=== PATIENT | male | born 2005 | race African-American/Black ===

== ENCOUNTER 2025-01-10 17:11 | Observation (INO) ==
[2025-01-10 17:48] LABS: Basophils # (auto) 0.03 K/uL (0.00-0.20); Basophils % (auto) 0.4 %; Eosinophils # (auto) 0.09 K/uL (0.00-0.50); Eosinophils % (auto) 1.1 %; Hematocrit (blood only) 43.6 % (42.0-52.0); Hemoglobin 15.3 g/dl (14.0-18.0); Immature Granulocytes # (auto) 0.03 K/uL (0.01-0.20); Immature Granulocytes % (auto) 0.4 %; Lymphocytes # (auto) 1.51 K/uL (1.20-3.40); Lymphocytes % (auto) 17.9 %; Mean Corpuscular Hemoglobin 30.9 pg (25.0-34.0); Mean Corpuscular Hgb Conc 35.1 g/dL (32.0-36.0); Mean Corpuscular Volume 88.1 fL (80.0-100.0); Mean Platelet Volume 10.9 fL (9.4-12.4); Monocytes # (auto) 0.48 K/uL (0.11-0.59); Monocytes % (auto) 5.7 %; Neutrophils # (auto) 6.31 K/uL (1.40-6.50); Neutrophils % (auto) 74.5 %; Platelet Count 193 K/uL (130-400); RDW Coefficient of Variation 12.1 % (11.5-14.5); RDW Standard Deviation 38.9 fL (36.4-46.3); Red Blood Count 4.95 M/uL (4.70-6.10); White Blood Count 8.45 K/ul (4.8-10.8)
[2025-01-10 17:50] LABS: Appearance Urine Clear (Clear); Bacteria Urine Automated None Seen (None Seen); Bilirubin Urine Negative (Negative); Blood Urine 1+ (Negative); Cast Urine Automated 0-2 /lpf (0-2); Color Urine Yellow; Epithelial Cell Urine Auto 0-2 /hpf (0-2); Glucose Urine UA Negative (Negative); Ketones Urine Negative (Negative); Leukocyte Esterase Urine Negative (Negative); Nitrite Urine Negative (Negative); Protein Urine Negative (Negative); Specific Gravity Urine 1.023 (1.000-1.030); Urobilinogen Urine Negative (Negative); WBC Urine Automated 0-5 /hpf (0-5)
[2025-01-10 18:04] LABS: Albumin Globulin Ratio 1.6 (0.9-2); Albumin Level 5.1 gm/dl (3.4-5.0); Bilirubin,Total 1.1 mg/dl (0.2-1.0); Calcium 9.9 mg/dl (8.6-10.3); Creatinine Clr Calc Pharmacy 115.9 ml/min; Globulin 3.1 gm/dl (2.5-4.0); Potassium 3.9 mmol/L (3.5-5.1); Total Protein 8.2 gm/dl (6.0-8.3)
[2025-01-10] MEDS: OPTIRAY 320 100ml IV ONE (19:19)
--- NOTE | 2025-01-10 19:34 | CT Scan Report ---
Clinical History: Rule out appendicitis Technique: Axial computed tomography images were obtained of the abdomen and pelvis after the administration of intravenous contrast. No prior CT is available for comparison. Findings: The liver is overall of normal size, attenuation, and contour with no sign of cirrhosis or significant fatty infiltration. No liver mass lesion is seen. The portal vein is patent. The gallbladder appears unremarkable. No bile duct dilatation is noted. The spleen is of normal size. No focal splenic lesion is evident. The pancreas appears normal with no sign of acute or chronic pancreatitis and no mass lesion noted. The pancreatic duct is of normal caliber. The adrenal glands appear unremarkable. No definite renal or proximal ureteral calculi are seen on this contrast-enhanced study. There is no hydronephrosis or perinephric stranding. No renal mass lesion is identified. The aorta is of normal caliber. No abdominal adenopathy is seen. The stomach appears normal. There is no sign of small bowel obstruction. The colon appears unremarkable. The appendix is mildly dilated and thick-walled with mild adjacent soft tissue stranding. No free intraperitoneal fluid or air is identified. No distal ureteral or bladder calculi are seen. No bladder mass lesion is evident. The iliac arteries are of normal caliber. No pelvic adenopathy is noted. The lungs bases appear clear. No fracture is identified. No focal osseous lesion is seen Impression: Acute appendicitis. There is no sign of perforation or abscess formation Electronically signed by Hong Salazar 01-10-2025 7:33 PM
[2025-01-10] MEDS: PIPERACILLIN/TAZOBACTAM 4.5 GM/100 ML BAG IV ONE (19:54)
[2025-01-10] MEDS ORDERED: ACETAMINOPHEN 1,000 MG/100 ML VIAL IV PRN (20:12)
[2025-01-10] MEDS ORDERED: ONDANSETRON INJ 2 MG/ML 2 ML VIAL IV PRN (20:12)
[2025-01-10] MEDS ORDERED: MoRPHine SULFATE 4 MG/ML 1 ML CARP\\VIAL IV PRN (20:12)
--- NOTE | 2025-01-10 20:12 | History & Physical Report ---
Date of Service January 10, 2025 Assessment & Plan (1) Appendicitis: Plan: Due to the patient's clinical presentation as well as findings on CT scan he will be admitted to the surgical service proceeding as follows: Analgesics we provided Antiemetics to be provided We will initiate antibioticsthe emergency department is already initiated Zosyn which we will continue Will hydrate him with IV fluids Will implement n.p.o. status We will tentatively plan on having the patient undergo an appendectomy with Dr. Travis Aguiar of [facility] physician of general surgery on 01/11/2025 At the present time the patient is nontoxic-appearing. He is normotensive and was not tachycardic at the time of my exam. He is afebrile. He does not have leukocytosis. As the patient ate a full meal at approximately 2:00 PM and he does not appear septic/toxic we will hold on do his surgery until the morning of 01/11/2025 We will use SCDs for DVT prevention, no chemical means due to planned surgery Additional recommendations with forthcoming based on operative findings and his postoperative recovery thereafter Will make the patient a level 1 full code History of Present Illness Chief Complaint: Abdominal pain Primary Care Provider: NO PCP This is a 19-year-old male who presented to the emergency department secondary to abdominal pain. Patient notes that the pain began approximately 2 days ago and was in the periumbilical location and has since shifted to the right lower quadrant. He denies any fevers, shakes, or chills. He denies any nausea or vomiting. He does note that the pain became more severe over the past 12 hours and therefore presented to [facility] who ultimately referred the patient to the emergency department for further evaluation. Patient notes that he has had no prior abdominal surgeries. He does note that his most recent oral intake was at approximate 2:00 PM at which time he ate a salad with croutons and Caesar dressing, some watermelon, some cannula, as well as some cottage cheese. Since arrival to the hospital the patient has had labs and imaging which I independently reviewed. CT scan of the abdomen pelvis showed the patient had signs of acute appendicitis is in the appendix but people have was noted to be mildly dilated and thick-walled with some mild adjacent soft tissue stranding. There is no free intraperitoneal fluid or free intraperitoneal air. There is no evidence of appendiceal perforation. CBC revealed white blood cell count, hemoglobin, hematocrit, and platelet count were normal. Chemistry profile showed sodium and potassium as well as the BUN and creatinine were normal. There is no elevation of LFTs or lipase Other than a slight elevation of the total bilirubin of 1.1. Urinalysis was not indicative of infection. At the time of my interview patient is resting comfortably in bed he was no distress. Concerning past medical history he denies any medical problems Concerning past surgical history he has never had surgery Concerning social history he does not smoke or vape Concerning family history his father is treated for hypertension. Allergies Allergy/AdvReac Type Severity Reaction Status Date / Time No Known Allergies Allergy Unverified 01/10/25 19:56 Home Medications Medication Instructions Recorded Confirmed Type No Known Home Medications 01/10/25 01/10/25 History Past Med/Surg History Problem List (Updated 01/10/25 @ 20:09 by Gurjit Shepherd PA-C) Appendicitis Social History Smoking Status: Never smoker Preferred Language: Andorran Feels Safe at Home: Yes Review of Systems Review of Systems: All systems reviewed & are unremarkable except as noted in HPI & below Physical Exam Constitutional: WD/WN, vitals as above Eyes: no conjunctival abnormality ENMT: Ears: no hearing impairment and no external ear abnormality Mouth: no oropharynx abnormality Neck: trachea midline Respiratory: normal respiratory effort; no respiratory distress and no labored breathing Cardiovascular: Rate/Rhythm: regular rate and regular rhythm Gastrointestinal (Abdomen): Abdomen is soft and nondistended. There is no rebound tenderness or guarding or rigidity. Patient did have pain with palpation in the right lower quadrant over McBurney's point Musculoskeletal: No gross orthopedic abnormalities Skin: no rashes Neurologic: moves all extremities Psychiatric: A+Ox3, euthymic affect Results & Data Results & Data Vital Signs (Past 12 Hours) Vital Signs Temp Pulse Pulse Resp BP BP Pulse Ox 01/10/25 19:55 94 H 19 118/80 98 01/10/25 19:05 84 19 123/72 100 01/10/25 18:43 79 20 143/91 H 99 01/10/25 17:22 36.5 C 89 19 129/74 98 O2 Del Method 01/10/25 19:55 Room Air 01/10/25 19:05 Room Air 01/10/25 18:43 Room Air 01/10/25 17:22 Room Air PG Care Time/CCT Total # of Minutes Spent Total Time Spent with Patient: Total time spent is greater than 50% in coordination of care (as documented) at patient's floor/unit and/or counseling patient: Coding Level of Care Code 48251 INT INP/OBS CARE 3/75MIN Diagnoses Appendicitis K37
[2025-01-10 21:11] LABS: Partial Thromboplastin Ratio 1.1; Partial Thromboplastin Time 29 Seconds (21-31); Prothrombin Time 11.2 Seconds (9.0-12.0)
[2025-01-10] MEDS: SODIUM CHLORIDE 0.9% 1,000 ML IV SCH (21:19)
--- NOTE | 2025-01-10 21:42 | Emergency Department Note ---
ED Provider Note History of Present Illness Chief Complaint: Abdominal Pain Stated Complaint: LOWER QUAD ABD PAIN Time Seen by Provider: 01/10/25 19:37 Source: patient Mode of arrival: ambulatory Limitations: no limitations This patient is a 19-year-old male who presents to the emergency department for evaluation of right lower abdominal pain. Patient states that 2 days ago, he developed some mild pain around his bellybutton. Yesterday he noticed the pain was more on the right side and was persistent throughout the day. He has had continued pain today. He was seen by [facility] today and referred here for appendicitis workup. He denies any nausea/vomiting or fevers. No urinary symptoms or changes in bowel movements. Pain is worse when he is standing straight up or moving. Home Medications Medication Instructions Recorded Confirmed Type No Known Home Medications 01/10/25 01/10/25 History Allergies Allergy/AdvReac Type Severity Reaction Status Date / Time No Known Allergies Allergy Unverified 01/10/25 19:56 Past Med/Surg History Problem List (Updated 01/10/25 @ 21:42 by Lauren Mcgowan PA-C) Appendicitis (Acute) Social History Smoking Status: Never smoker Preferred Language: Kiswahili Feels Safe at Home: Yes Physical Exam Vital Signs Vital Signs - 24 hr 01/10/25 17:22 01/10/25 18:43 01/10/25 19:05 Temperature 36.5 C Temperature Source Temporal Artery Scan Pulse Rate 89 Pulse Rate [Right] 79 84 Respiratory Rate 19 20 19 Respiratory Effort / Characteristics Non-Labored Spontaneous Respiratory Depth Normal Blood Pressure 129/74 Blood Pressure [Left Arm] 143/91 H 123/72 Blood Pressure Mean 92 Blood Pressure Mean [Left Arm] 108 89 Pulse Oximetry 98 99 100 Oxygen Delivery Method Room Air Room Air Room Air Sepsis Recent Fever Within 48 Hours No Sepsis New/Unexplained Change in Mental Status N/A Sepsis Action Taken by Nursing No Action Required 01/10/25 19:55 Temperature Temperature Source Pulse Rate Pulse Rate [Right] 94 H Respiratory Rate 19 Respiratory Effort / Characteristics Respiratory Depth Blood Pressure Blood Pressure [Left Arm] 118/80 Blood Pressure Mean Blood Pressure Mean [Left Arm] 92 Pulse Oximetry 98 Oxygen Delivery Method Room Air Sepsis Recent Fever Within 48 Hours Sepsis New/Unexplained Change in Mental Status Sepsis Action Taken by Nursing VITALS: Vitals are noted on the nurse's note and reviewed by myself. GENERAL: This is a 19-year-old male, in no acute distress, well-developed well- nourished. SKIN: The skin was without rashes. HEART: Regular rate and rhythm without murmurs gallops or rubs. LUNGS: Clear to auscultation bilaterally without wheezes, rales or rhonchi. ABDOMEN: Positive bowel sounds x 4. Soft, moderate tenderness in the right lower quadrant. No guarding or rebound tenderness. NEURO: Patient was alert and oriented to person place and time. Course Administered Medications Sodium Chloride (Nss) 1,000 mls @ 100 mls/hr IV .Q10H NURIS Stop: 01/11/25 20:14 Last Admin: 01/10/25 21:19 Dose: 100 mls/hr Documented By: ASW Discontinued Medications Piperacillin Sod/Tazobactam Sod (Zosyn) 4.5 gm in 100 mls @ 200 mls/hr IV NOW ONE Stop: 01/10/25 20:14 Last Infusion: 01/10/25 20:21 Dose: Infused Documented By: Admin: 01/10/25 19:54 Dose: 200 mls/hr Documented By: ASW Ioversol (Optiray 320 100ml) 93 ml IV ONCE ONE Stop: 01/10/25 19:20 Last Admin: 01/10/25 19:19 Dose: 93 ml Documented By: PLW Medical Decision Making Differential Diagnosis Appendicitis, testicular torsion, infections, diverticulitis, UTI, obstruction, mesenteric ischemia, aortic pathology, inflammatory bowel disease, renal colic, PUD, pancreatitis, biliary pathology, hernia, volvulus, constipation, as well as other pathologies. Laboratory Data Attestation: I reviewed the patient's lab results. 01/10/25 17:27 01/10/25 17:27 Lab Results 01/10/25 01/10/25 Range/Units 17:27 17:29 WBC 8.45 (4.8-10.8) K/ul RBC 4.95 (4.70-6.10) M/uL Hgb 15.3 (14.0-18.0) g/dl Hct 43.6 (42.0-52.0) % MCV 88.1 (80.0-100.0) fL MCH 30.9 (25.0-34.0) pg MCHC 35.1 (32.0-36.0) g/dL RDW Std Deviation 38.9 (36.4-46.3) fL RDW Coeff of Serge 12.1 (11.5-14.5) % Plt Count 193 (130-400) K/uL MPV 10.9 (9.4-12.4) fL Immature Gran % (Auto) 0.4 % Neut % (Auto) 74.5 % Lymph % (Auto) 17.9 % [place] % (Auto) 5.7 % Eos % (Auto) 1.1 % Baso % (Auto) 0.4 % Neut # (Auto) 6.31 (1.40-6.50) K/uL Lymph # (Auto) 1.51 (1.20-3.40) K/uL [place] # (Auto) 0.48 (0.11-0.59) K/uL Eos # (Auto) 0.09 (0.00-0.50) K/uL Baso # (Auto) 0.03 (0.00-0.20) K/uL Immature Gran # (Auto) 0.03 (0.01-0.20) K/uL PT 11.2 (9.0-12.0) Seconds INR 1.0 (0.9-1.1) APTT 29 (21-31) Seconds PTT Ratio 1.1 Sodium 138 (136-145) mmol/L Potassium 3.9 (3.5-5.1) mmol/L Chloride 103 (98-107) mmol/L Carbon Dioxide 27 (21-32) mmol/L Anion Gap 8 (3-11) BUN 20 (6-23) mg/dl Creatinine 1.05 (0.6-1.4) mg/dl Est Cr Clr Drug Dosing 115.9 ml/min eGFR 104.22 BUN/Creatinine Ratio 19.0 (10-20) Glucose 89 (70-99(Fasting)) mg/dl Calcium 9.9 (8.6-10.3) mg/dl Total Bilirubin 1.1 H (0.2-1.0) mg/dl AST 23 (13-39) U/L ALT 35 (7-52) U/L Alkaline Phosphatase 44 (34-104) U/L Total Protein 8.2 (6.0-8.3) gm/dl Albumin 5.1 H (3.4-5.0) gm/dl Globulin 3.1 (2.5-4.0) gm/dl Albumin/Globulin Ratio 1.6 (0.9-2) Lipase 19 (11-82) U/L Urine Color Yellow Urine Appearance Clear (Clear) Urine pH 6.0 (4.5-7.5) Ur Specific [place] 1.023 (1.000-1.030) Urine Protein Negative (Negative) Urine Glucose (UA) Negative (Negative) Urine Ketones Negative (Negative) Urine Blood 1+ H (Negative) Urine Nitrite Negative (Negative) Urine Bilirubin Negative (Negative) Urine Urobilinogen Negative (Negative) Ur Leukocyte Esterase Negative (Negative) Urine WBC (Auto) 0-5 (0-5) /hpf Urine RBC (Auto) 3-5 H (0-2) /hpf U Hyaline Cast (Auto) 0-2 (0-2) /lpf U Epithel Cells (Auto) 0-2 (0-2) /hpf Urine Bacteria (Auto) None Seen (None Seen) Imaging Data Attestation: I personally reviewed and interpreted this imaging study as follows: Radiologist's Impression: Abdomen/Pelvis CT 01/10/25 18:39 Clinical History: Rule out appendicitis Technique: Axial computed tomography images were obtained of the abdomen and pelvis after the administration of intravenous contrast. No prior CT is available for comparison. Findings: The liver is overall of normal size, attenuation, and contour with no sign of cirrhosis or significant fatty infiltration. No liver mass lesion is seen. The portal vein is patent. The gallbladder appears unremarkable. No bile duct dilatation is noted. The spleen is of normal size. No focal splenic lesion is evident. The pancreas appears normal with no sign of acute or chronic pancreatitis and no mass lesion noted. The pancreatic duct is of normal caliber. The adrenal glands appear unremarkable. No definite renal or proximal ureteral calculi are seen on this contrast-enhanced study. There is no hydronephrosis or perinephric stranding. No renal mass lesion is identified. The aorta is of normal caliber. No abdominal adenopathy is seen. The stomach appears normal. There is no sign of small bowel obstruction. The colon appears unremarkable. The appendix is mildly dilated and thick-walled with mild adjacent soft tissue stranding. No free intraperitoneal fluid or air is identified. No distal ureteral or bladder calculi are seen. No bladder mass lesion is evident. The iliac arteries are of normal caliber. No pelvic adenopathy is noted. The lungs bases appear clear. No fracture is identified. No focal osseous lesion is seen Impression: Acute appendicitis. There is no sign of perforation or abscess formation Electronically signed by Hong Salazar 01-10-2025 7:33 PM MDM Narrative This patient is a 19-year-old male who presents to the emergency department for evaluation of right lower quadrant abdominal pain. Labs show no leukocytosis or other acute abnormalities. CT does show evidence of acute appendicitis without abscess or perforation. General surgery was consulted. Patient's last meal approximately 6 hours ago. He will be admitted by surgery and taken to the OR in the morning. He was given a dose of Zosyn in the emergency department. He declined any analgesics. Impression Appendicitis Discharge Plan Visit Data Chief Complaint: Abdominal Pain Stated Complaint: LOWER QUAD ABD PAIN ED Provider: Tracie Valdes ED Midlevel Provider: Lauren Mcgowan Discharge Problem: Appendicitis Forms Stand Alone Forms: [employer] Prescriptions Prescriptions: No Action No Known Home Medications Referrals Referrals: [place] [Primary Care Provider] -
[2025-01-10] MEDS: PIPERACILLIN/TAZOBACTAM 4.5 GM/100 ML BAG IV SCH (23:41)
[2025-01-11] MEDS ORDERED: DEXAMETHASONE SOD INJ 4 MG/ML VIAL ONE (08:09)
[2025-01-11] MEDS ORDERED: MIDAZOLAM HCL 1 MG/ML 2ML VIAL ONE (08:09)
[2025-01-11] MEDS ORDERED: ROCURONIUM BROMIDE 10 MG/ML 5 ML VIAL IV ONE (08:09)
[2025-01-11] MEDS ORDERED: ONDANSETRON INJ 2 MG/ML 2 ML VIAL ONE (08:09)
[2025-01-11] MEDS ORDERED: LIDOCAINE 2% 2 ML VIAL/AMP(20MG/ML) INFIL ONE (08:09)
[2025-01-11] MEDS ORDERED: fentaNYL citrate PF 100 MCG/2 ML VIAL ONE ×2 (08:09→12:01)
[2025-01-11] MEDS ORDERED: PROPOFOL IV EMULSION 10 MG/ML 20 ML VIAL IV ONE (08:09)
--- NOTE | 2025-01-11 09:20 | Surgery Progress Note ---
Date of Service January 11, 2025 Assessment & Plan (1) Appendicitis: Plan: His CT and results were personally viewed and interpreted by myself He has periappendiceal inflammation without appendix consistent with appendicitis Will plan on a laparoscopic appendectomy, possible open Consent was obtained, risks discussed including bleeding, infection, abscess Admission and Anticipated Discharge Date Admission Date: January 10, 2025 Subjective Patient seen and examined. Minimal right lower quadrant pain. Afebrile. No nausea or vomiting. Review of Systems Constitutional: no fever and no chills Respiratory: no cough and no dyspnea Cardiovascular: no chest pain and no dyspnea on exertion Gastrointestinal: + abdominal pain; no nausea and no vomit ing Genitourinary: no dysuria or no urinary incontinence Psychiatric: no behavioral changes and no depression Hematologic / Lymphatic: no easy bleeding and no easy bruising Physical Exam Constitutional: WD/WN, vitals as above Eyes: PERRL, conjunctivae normal, anicteric sclerae Respiratory: normal respiratory effort, lungs clear to auscultation Cardiovascular: RRR, no murmur, no edema Gastrointestinal (Abdomen): Inspection/Auscultation: abdomen normal to inspection; abdomen not distended Percussion/Palpation: + abdomen tender (Right lower quadrant) and abdomen soft; no guarding and no hernia Skin: no rashes, warm and dry Psychiatric: A+Ox3, euthymic affect Results & Data Vital Signs (Past 12 Hours) Vital Signs Temp Pulse Resp BP Pulse Ox O2 Del Method 01/11/25 09:13 36.8 C 76 15 109/65 98 Room Air 01/11/25 07:21 36.9 C 81 18 122/73 98 Room Air 01/11/25 02:00 36.9 C 68 17 127/75 99 Room Air 01/10/25 22:30 Room Air 01/10/25 22:13 36.5 C 79 16 112/55 L 98 Room Air 01/10/25 22:10 36.5 C 79 16 112/55 L 98 Room Air PG Care Time/CCT Total # of Minutes Spent Total Time Spent with Patient: Total time spent is greater than 50% in coordination of care (as documented) at patient's floor/unit and/or counseling patient: Coding Level of Care Code 61454 SUB INP/OBS CARE 12/23MIN Diagnoses Appendicitis K37 Appendicitis type: acute appendicitis (1) Appendicitis Appendicitis type: acute appendicitis
--- NOTE | 2025-01-11 09:20 | Anesthesiology Consultation ---
Date of Service January 11, 2025 Assessment & Plan Chart Review Chart Review: Acceptable Risk for Surgery and Patient NOT seen in Pre Admission Testing Consults Requested none History Surgery Operation Date: 01/11/25 07:00 Proposed Procedures p Laparoscopic Appendectomy - Travis Aguiar DO Height/Weight Height: 5 ft 10 in Weight: 85.8 kg Allergies Allergy/AdvReac Type Severity Reaction Status Date / Time No Known Allergies Allergy Unverified 01/10/25 19:56 Medications Home Medications Medication Instructions Recorded Confirmed Last Taken No Known Home Medications 01/10/25 01/10/25 Unknown Active Medications Generic Name Dose Route Start Last Admin Trade Name Freq PRN Reason Stop Dose Admin Sodium Chloride 1,000 mls @ 100 mls/hr 01/10/25 20:15 01/11/25 07:53 Nss IV 01/11/25 20:14 100 mls/hr .Q10H NURIS Administration Piperacillin Sod/Tazobactam Sod 4.5 gm in 100 mls @ 25 mls/hr 01/11/25 00:00 01/11/25 07:50 Zosyn IV 01/21/25 00:00 25 mls/hr Q8H NURIS Administration Protocol NPO Date Last Intake of Fluids: 01/10/25 Time Last Intake of Fluids: 13:45 Date Last Intake of Solids: 01/10/25 Time Last Intake of Solids: 13:45 Social History Smoking Status: Never smoker Do You Dip or Chew Tobacco: No Hx Alcohol Use: No Hx Substance Use: No Physical Exam Vital Signs Last Vital Signs Temp 98.2 F 01/11/25 09:13 Pulse 76 01/11/25 09:13 Resp 15 01/11/25 09:13 BP 109/65 01/11/25 09:13 Pulse Ox 98 01/11/25 09:13 O2 Del Method Room Air 01/11/25 09:13 Testing Laboratory Results 01/10/25 17:27 01/10/25 17:27 PT 11.2 Seconds (9.0-12.0) 01/10/25 17: INR 1.0 (0.9-1.1) 01/10/25 17: APTT 29 Seconds (21-31) 01/10/25 17:27 Urine Color Yellow 01/10/25 17: Urine Appearance Clear (Clear) 01/10/25 17: Urine pH 6.0 (4.5-7.5) 01/10/25 17: Ur Specific [place] 1.023 (1.000-1.030) 01/10/25 17: Urine Protein Negative (Negative) 01/10/25 17: Urine Glucose (UA) Negative (Negative) 01/10/25: Urine Ketones Negative (Negative) 01/10/25: Urine Nitrite Negative (Negative) 01/10/25: Ur Leukocyte Esterase Negative (Negative) 01/10/25 17: Urine WBC (Auto) 0-5 /hpf (0-5) 01/10/25: Urine RBC (Auto) 3-5 /hpf (0-2) H 01/10/25: U Hyaline Cast (Auto) 0-2 /lpf (0-2) 01/10/25 17: U Epithel Cells (Auto) 0-2 /hpf (0-2) 01/10/25 17: Urine Bacteria (Auto) None Seen (None Seen) 01/10/25:
[2025-01-11] MEDS ORDERED: fentaNYL citrate PF 100 MCG/2 ML VIAL IV PRN (09:30)
[2025-01-11] MEDS ORDERED: ePHEDrine sulfate 50 MG/ML AMP IV PRN (09:30)
[2025-01-11] MEDS ORDERED: ONDANSETRON INJ 2 MG/ML 2 ML VIAL IV PRN (09:30)
[2025-01-11] MEDS ORDERED: ATROPINE SULFATE 0.1 MG/ML 10ML SYR IV PRN (09:30)
[2025-01-11] MEDS: BUPIVACAINE/EPINEPHRINE 0.25% 1:200,000 30 ML VIAL ONE (12:16)
[2025-01-11] MEDS ORDERED: SUGAMMADEX SODIUM 200 MG/2 ML VIAL IV ONE (12:17)
[2025-01-11] MEDS ORDERED: KETOROLAC 30 MG/ML VIAL ONE (12:18)
--- NOTE | 2025-01-11 12:23 | Post Operative Brief Note ---
PG Immediate Post Op with CF Date of Surgery January 11, 2025 Pre & Post Diagnosis Operation Date: 01/11/25 07:00 Pre-Op Diagnosis: Appendicitis Post-Op Diagnosis: Appendicitis without perforation I identified the patient and participated in the time-out.: Yes Procedure Operation Date: 01/11/25 07:00 Actual Procedures p Laparoscopic Appendectomy(Not Applicable) - Travis Aguiar DO Surgeon Travis Aguiar DO 5[employer] Grade Teacher Laurel SMITH Estimated Blood Loss 5 Findings See Below Acutely inflamed, dilated appendix without perforation Specimens Specimen Description: A. Appendix Drains Haynes Catheter (haynes inserted by Mike Walls. foreskin was difficult to pull back to place haynes. Surgeon had to assist with pulling back of foreskin for placement) Anesthesia Type General Complications none Disposition Disposition: Recovery Room
--- NOTE | 2025-01-11 12:25 | Operative Report ---
PG Post Operative Report Pre & Post Diagnosis Operation Date: 01/11/25 07:00 Pre-Op Diagnosis: Appendicitis Post-Op Diagnosis: Appendicitis without perforation I identified the patient and participated in the time-out.: Yes Procedure Operation Date: 01/11/25 07:00 Actual Procedures p Laparoscopic Appendectomy(Not Applicable) - Travis Aguiar DO Surgeon Travis Aguiar DO Grievance And Appeals Specialist Laurel SMITH Estimated Blood Loss 5 Findings See Below Acutely inflamed, dilated appendix without perforation Specimens Appendix to pathology Drains None Anesthesia Type General Complications none Disposition Disposition: Recovery Room Indications 19 yo male with acute appendicitis Description of Procedure The patient was brought to the OR and placed in the supine position and SCD's placed. At this time he underwent general endotracheal anesthesia without incident. At this time a Arndt catheter was placed under sterile conditions. His abdomen was prepped and draped in the usual sterile fashion. He was given appropriate pre-operative antibiotics. A timeout was called, the procedure was verified as Laparoscopic appendectomy, possible open. Surgical, anesthesia and nursing teams agreed and the procedure was begun. After injection of 0.25% Marcaine with epinephrine, a supraumbilical incision was made using a #11 blade scalpel and carried down to the fascia with a hemostat. The abdomen was then elevated with towel clamps and entered using the Veress needle confirming position using the saline drop test. Pneumoperitoneum was established and 5mm trocar was placed. Laparoscope was introduced. No injury was seen from our entrance to the abdomen. At this time a 5mm suprapubic port and 12mm LLQ port were placed under direct visualization. The patient was placed in Trendelenburg and rotated to the left. At this time the appendix was visualized and the tip was freed and elevated toward the abdominal wall. The appendix appeared inflamed, dilated and edematous. A window was created in the mesoappendix at the base of the appendix. A 45mm laureano load stapler was then fired across the bas e of the appendix which appeared healthy. The mesoappendix was then taken using Harmonic device. The appendix was then placed in an Endocatch bag and removed through the LLQ port site. Staple line was inspected and was intact. Hemostasis was complete. The 12 mm port was then closed at the fascial level using a 0 Vicryl suture using the suture passer. All ports were removed under direct visualization and no bleeding was noted. The abdomen was desufflated and the skin was closed using 4-0 Monocryl in a subcuticular fashion. Sterile dressings were applied. Arndt catheter was removed. The patient was then awakened from anesthesia having remained stable throughout the entire case and transported to PACU. All needle and sponge counts were correct x 2. The nurse practitioner was present and scrubbed for the entire procedure. She was essential in positioning, prepping and draping the patient, driving the laparoscope, closure of the incisions and placement of the dressings. I attest to the content of the Intraoperative Record and any orders documented therein. Any exceptions are noted below.
[2025-01-11] MEDS ORDERED: oxyCODONE HCL IR 5 MG TAB (IMMEDIATE RELEASE) PO PRN ×2 (13:27)
[2025-01-11] MEDS ORDERED: ACETAMINOPHEN 325 MG TAB PO PRN (13:27)
--- NOTE | 2025-01-11 14:20 | Discharge Summary ---
Date of Service January 11, 2025 Admission HPI Per Admitting Provider This is a 19-year-old male who presented to the emergency department secondary to abdominal pain. Patient notes that the pain began approximately 2 days ago and was in the periumbilical location and has since shifted to the right lower quadrant. He denies any fevers, shakes, or chills. He denies any nausea or vomiting. He does note that the pain became more severe over the past 12 hours and therefore presented to [facility] who ultimately referred the patient to the emergency department for further evaluation. Patient notes that he has had no prior abdominal surgeries. He does note that his most recent oral intake was at approximate 2:00 PM at which time he ate a salad with croutons and Caesar dressing, some watermelon, some cannula, as well as some cottage cheese. Since arrival to the hospital the patient has had labs and imaging which I independently reviewed. CT scan of the abdomen pelvis showed the patient had signs of acute appendicitis is in the appendix but people have was noted to be mildly dilated and thick-walled with some mild adjacent soft tissue stranding. There is no free intraperitoneal fluid or free intraperitoneal air. There is no evidence of appendiceal perforation. CBC revealed white blood cell count, hemoglobin, hematocrit, and platelet count were normal. Chemistry profile showed sodium and potassium as well as the BUN and creatinine were normal. There is no elevation of LFTs or lipase Other than a slight elevation of the total bilirubin of 1.1. Urinalysis was not indicative of infection. At the time of my interview patient is resting comfortably in bed he was no distress. Concerning past medical history he denies any medical problems Concerning past surgical history he has never had surgery Concerning social history he does not smoke or vape Concerning family history his father is treated for hypertension. Principal Diagnosis acute appendicitis Discharge Exam Constitutional no acute distress Respiratory normal respiratory effort; no respiratory distress Cardiovascular Rate/Rhythm: regular rate Gastrointestinal (Abdomen) Inspection/Auscultation: abdomen normal to inspection; abdomen not distended Percussion/Palpation: abdomen soft Neurologic moves all extremities Discharge Data Allergies Allergy/AdvReac Type Severity Reaction Status Date / Time No Known Allergies Allergy Unverified 01/10/25 19:56 Procedures Performed Operation Date: 01/11/25 07:00 Actual Procedures p Laparoscopic Appendectomy(Not Applicable) - Travis Aguiar DO Ordered Studies 01/10/25 18:39 CT abd pelvis IV con only Stat Hospital Course (1) Appendicitis: This is a 19 yo male who presented to the [facility] ED on 01/10/25 with abdominal pain. Workup in the ED showed a CT a/p concerning for acute appendicitis (see HPI for full details). . Patient made NPO with IVF and booked for the OR. On 01/11/25 the patient went to the OR with Dr Aguiar for a laparoscopic appendectomy. The patient tolerated the procedure well, see operative report for full details. Post operatively the patient's diet was advanced, pain managed on prn meds, and incisions clean/dry/intact. The patient was deemed stable for discharge to home. The patient was given discharge instructions, follow up re commendations, return precautions and a prescription for narcotic pain medication. Total Time Total Time Spent Total Time Spent (In Minutes): 10 Discharge Plan Discharge Items Patient Disposition: Home - Self-Care Reason For Visit: APPY Discharge Diagnosis: laparoscopic appendectomy Activity: As commented below Lifting: No more than 10 pounds Exercise/Sports: Wait until after follow-up appointment Driving/Machine Use: no driving if taking narcotic pain medication Non-emergency contact: Surgeon Call non-emergency contact if: you have any medication questions, your symptoms worsen, your temperature is above 101.5, your wound has increased redness, your wound has increased drainage and your wound pain has increased Follow-up/Referrals: Travis Aguiar DO [Physician] - (call office for follow up in 2 weeks ) [facility] [Primary Care Provider] - Diet: Regular Addtl Attending Provider Instructions: You have surgical glue called dermabond on your surgical site incisions. You may shower with this on. This will tend to come off within a couple of weeks. Do not pick at it. You may purchase Tylenol and or Ibuprofen over the counter if needed for addition pain control over the next few days. Take per manufacturers instructions, Do not take more than 3 grams of Tylenol in 24 hours. Pending Studies at Discharge: Yes Studies:: surgical pathology Stand-Alone Forms: My [employer], Work/School Release, Smoking Cessation Medications and DC Order Prescriptions: New oxycodone-acetaminophen 5-325 mg tablet 1 - 2 tab PO .[id number] MDD Max 6 tabs per day PRN (Reason: pain) Qty: 15 0RF Discharge Orders: Discharge Order (Routine); Ordered 01/11/25 Ordered By: Laurel Rudd/Other Patient Handouts: Surgery for Appendicitis Admission Data Admit Date/Time: 01/10/25 20:15 Attending Provider: Travis Aguiar Admit Provider: Travis Aguiar Primary Care Provider: [facility] Other Interventions: Discharge Summary Assessment (RN) Last Done: 01/11/25 14:38 Coding Level of Care Code 46602 IN/OBS DISCH 30 MIN/LESS Diagnoses Appendicitis K37 Appendicitis type: acute appendicitis
--- NOTE | 2025-01-11 14:21 | Anesthesiology Progress Note ---
Date of Service January 11, 2025 Anesthesia Post Procedure Vital Signs Vital Signs: Temp Pulse Pulse Pulse Pulse Resp BP 01/11/25 13:55 97.5 F L 86 18 01/11/25 13:25 97.9 F 88 18 01/11/25 13:15 97.7 F 85 18 01/11/25 13:05 94 H 22 01/11/25 12:55 93 H 20 01/11/25 12:49 97.5 F L 82 18 01/11/25 09:13 98.2 F 76 15 01/11/25 07:21 98.4 F 81 18 01/11/25 02:00 98.4 F 68 17 01/10/25 22:30 01/10/25 22:13 97.7 F 79 16 01/10/25 22:10 97.7 F 79 16 01/10/25 19:55 94 H 19 01/10/25 19:05 84 19 01/10/25 18:43 79 20 01/10/25 17:22 97.7 F 89 19 129/74 BP Pulse Ox O2 Del Method O2 Flow Rate 01/11/25 13:55 118/73 100 Room Air 01/11/25 13:25 129/79 100 Room Air 01/11/25 13:15 134/61 98 Room Air 01/11/25 13:05 121/69 100 Room Air 01/11/25 12:55 125/74 100 Oxymask 4 01/11/25 12:49 119/64 100 Oxymask 6 01/11/25 09:13 109/65 98 Room Air 01/11/25 07:21 122/73 98 Room Air 01/11/25 02:00 127/75 99 Room Air 01/10/25 22:30 Room Air 01/10/25 22:13 112/55 L 98 Room Air 01/10/25 22:10 112/55 L 98 Room Air 01/10/25 19:55 118/80 98 Room Air 01/10/25 19:05 123/72 100 Room Air 01/10/25 18:43 143/91 H 99 Room Air 01/10/25 17:22 98 Room Air Pain Intensity Abdomen: Pain Intensity: 4 Transfer of Care Handoff Completed per policy Notes Mental Status: alert / awake / arousable and participated in evaluation Patient Amnestic to Procedure: Yes Nausea / Vomiting: adequately controlled Pain: adequately controlled Airway Patency, RR, SpO2: stable & adequate BP & HR: stable & adequate Hydration State: stable & adequate Anesthetic Complications: no major complications apparent and Pt Satisfied with anesthetic care
[2025-01-11 16:26] VITALS: BP 128/75; PULSE 83; RESP 18; TEMP 97.9; O2SAT 97
== END 2025-01-11 16:50 | disposition home or self-care (01) | DRG 399 ==
LOC: ED 17:11 → 3W 20:15 → INTOOBSV 20:15 → 3W 21:51
DX: K35.80 Unspecified acute appendicitis